=== PATIENT | male | born 2000 | race Two or more races ===

== ENCOUNTER 2024-02-02 14:33 | Emergency (ER) | payer OTHER ==
[~2024-02-02] VITALS: Ht 165.1 cm; Wt 97.5 kg
[2024-02-02] MEDS ORDERED: 0.9 % SODIUM CHLORIDE 1,000 ML IV ONE (15:15)
[2024-02-02] MEDS ORDERED: FAMOTIDINE/PF 20 MG/2 ML VIAL IV PUSH ONE (15:15)
[2024-02-02] MEDS ORDERED: HYOSCYAMINE SULFATE 0.125 MG TAB.SUBL SL ONE ×2 (15:15→19:00)
[2024-02-02] MEDS ORDERED: ONDANSETRON HCL 2 MG/ML VIAL IV ONE (15:15)
[2024-02-02 15:59] LABS: HEMATOCRIT 53.6 % (39.0-48.0); HEMOGLOBIN 17.7 g/dL (13-16.00); MEAN CELL VOLUME 85.8 fL (80.0-100.00); MEAN CORPUSCULAR HEMOGLOBIN 28.3 pg (27.00-32.0); PLATELET COUNT 272 K/uL (150-450); RED BLOOD COUNT 6.24 M/uL (4.00-6.00); RED CELL DISTRIBUTION WIDTH 13.7 % (11.5-14.5)
[2024-02-02 16:21] LABS: ALBUMIN 4.8 gm/dL (3.4-5.0); BILIRUBIN TOTAL 0.82 mg/dL (0.3-1.2); CALCIUM 9.9 mg/dL (8.5-10.1); CREATININE SERUM 1.1 mg/dL (0.70-1.30); GFR 82.95; GLOBULINA 4.4 G/DL (2.4-3.5); POTASSIUM 4.04 mEq/L (3.5-5.1); TOTAL PROTEIN 9.2 gm/dL (6.4-8.2)
[2024-02-02] MEDS ORDERED: ONDANSETRON 4 MG TAB.RAPDIS PO ONE (19:00)
== END 2024-02-02 18:59 | disposition home or self-care (01) ==
LOC: ER 14:35
PROVIDERS: General Practice
DX: K52.9 Noninfective gastroenteritis and colitis, unspecified (principal); Z20.822 Contact with and (suspected) exposure to COVID-19